=== PATIENT | male | born 1950 ===

== ENCOUNTER 2020-05-19 16:43 | Outpatient (CLI) | payer MEDICARE, BC ==
--- NOTE | 2020-05-20 09:24 | Ultrasound Report ---
PROCEDURE: Duplex Ext Veins Right INDICATIONS: CALF PAIN TECHNIQUE: Real-time imaging, as well as color and pulse Doppler interrogation, were performed of the lower extr emity deep veins from the inguinal ligament to the popliteal fossa. COMPARISON: None. FINDINGS: The deep veins are normally compressible, and free of intraluminal thrombus. Color and pu lse Doppler demonstrate normal phasic intraluminal flow. There is normal augmentation response to di stal compression maneuver. There is a minimally complicated posterior fossa cyst measuring 3.7 x 1.6 x 0.8 cm. In the deep soft tissues medial to the joint, there is an irregular fluid collection measuring about 2.9 cm in increas ed internal echogenicity. IMPRESSION: 1. No DVT. 2. Small Ryan's cyst. 3. Subcutaneous fluid medial to the knee, likely hematoma or seroma. Reviewed by: Jeannette Ponce MD on 05/20/2020 9:22 AM PDT Approved by: Jeannette Ponce MD on 05/20/2020 9:22 AM PDT Station ID: [id number]
== END 2020-05-19 16:44 | disposition home or self-care (01) ==
LOC: DI 16:43
PROVIDERS: ATTEND Physician Assistant Medical
DX: M71.21 Synovial cyst of popliteal space [Baker], right knee (principal); R93.89 Abnormal findings on diagnostic imaging of other specified body structures